=== PATIENT | female | born 1980 | race Two or more races ===

== ENCOUNTER → 2023-08-27 | Emergency (ER) | payer OTHER ==
[~2023-08-27] VITALS: Ht 160 cm; Wt 63.0 kg
[~2023-08-27] MED LIST: AMOX-CLAV 875-1 EAC1 PO; DEXAMETHASONE4 MG PO; FLONASE16 GM NASAL; MUCINEX DM ER1 EACH PO; OSEL75CA PO; ZYRTEC10 MG PO
== END | disposition home or self-care (01) ==
LOC: ER 12:25
DX: J10.1 Influenza due to other identified influenza virus with other respiratory manifestations (principal); Z88.6 Allergy status to analgesic agent; Z20.822 Contact with and (suspected) exposure to COVID-19